=== PATIENT | male | born 2000 | race Caucasian/White ===

== ENCOUNTER 2021-07-03 08:03 | Observation (INO) | payer OTHER ==
[2021-07-03] MEDS ORDERED: Ondansetron PF 4 MG/2 ML Vial ONE (08:44)
[2021-07-03] MEDS ORDERED: Morphine 4 MG/ML VIAL ONE (08:44)
[2021-07-03 08:48] LABS: #Eosinphils 0.2 10x3/uL (0.0-0.5); #Monocytes 1.2 10x3/uL (0.0-1.1); %Basophils 0.3 % (0.0-2.0); %Eosinophils 1.4 % (0.0-6.0); %Lymphocytes 5.8 % (18.0-47.0); %Monocytes 9.7 % (0.0-10.0); %Neutrophils 82.4 % (40.0-75.0); Hemoglobin 14.8 g/dL (13.5-17.5); Mean Corpuscular HGB CONC 34.4 g/dL (32.0-36.0); Mean Corpuscular Hemoglobin 29.6 pg (27.0-33.0); Mean Platelet Volume 12.1 fl (7.4-10.4); Platelet Count 150 10x3/uL (150-450); White Blood Cell (WBC) Count 12.1 10x3/uL (3.5-10.5)
[2021-07-03 09:18] LABS: ALT (SGPT) 43 U/L (8-55); AST (SGOT) 37 U/L (5-34); Albumin 4.4 g/dL (3.5-5.0); Alkaline Phosphatase 72 U/L (40-110); Anion Gap 12 mmol/L (10-20); BUN (Urea Nitrogen) 12 mg/dL (8.9-20.6); Bilirubin, Total 0.8 mg/dL (0.2-1.2); Calc. Creatinine Clearance 0 mL/min (70-130); Calcium 9.4 mg/dL (7.8-10.44); Carbon Dioxide 24 mmol/L (22-29); Chloride 105 mmol/L (98-107); Globulin 2.6 g/dL (2.4-3.5); Glucose 118 mg/dL (70-105); Sodium 137 mmol/L (136-145)
[2021-07-03] MEDS ORDERED: HYDROmorphone 0.5 MG/0.5 ML SYRINGE ONE (10:05)
[2021-07-03] MEDS ORDERED: methylPREDNISolone Sod Succ/PF 125 MG/2 ML VIAL ONE (12:05)
[2021-07-03] MEDS ORDERED: metroNIDAZOLE 500 MG TAB ONE (12:29)
[2021-07-03 12:30] LABS: Bilirubin Neg (Negative); Blood, Urine Negative (Negative); Clarity Clear (Clear); Glucose, Urine (Dipstick) Normal (Negative); Ketone, Urine Negative (Negative); Leukocyte Negative (Negative); Nitrite Negative (Negative); Protein, Urine (Dipstick) 15 mg/dl (Neg-Trace); Urobilinogen Normal mg/dL (Less than 2); pH, Urine 6.5 (5.0-9.0)
[2021-07-03] MEDS ORDERED: Ciprofloxacin 500 MG TAB PO SCH (12:30)
[2021-07-03] MEDS ORDERED: Ondansetron ODT 4 MG TAB PO PRN (13:54)
[2021-07-03] MEDS ORDERED: Ondansetron PF 4 MG/2 ML Vial IVP PRN (13:54)
[2021-07-03] MEDS ORDERED: Acetaminophen 325 MG TAB PO PRN (13:54)
[2021-07-03] MEDS ORDERED: metroNIDAZOLE 500 MG in Premix Bag 1 BAG IVPB SCH (14:00)
[2021-07-03 15:33] VITALS: BMI 25.4
[2021-07-03] MEDS: Lactated Ringer's 1,000 ML IV SCH ×2 (17:56→22:02)
[2021-07-03] MEDS: HYDROcodone/Acetaminophen 5/325 mg Tablet PO PRN ×2 (18:04→22:03)
[2021-07-03] MEDS: methylPREDNISolone Sod Succ 40 MG VIAL IVP SCH (22:01)
[2021-07-03] MEDS: metroNIDAZOLE 500 MG TAB PO SCH (22:02)
[2021-07-04 05:11] LABS: #Monocytes 0.4 10x3/uL (0.0-1.1); #Neutrophils 11.4 10x3/uL (1.5-8.4); %Basophils 0.1 % (0.0-2.0); %Lymphocytes 6.2 % (18.0-47.0); %Monocytes 3.4 % (0.0-10.0); %Neutrophils 89.9 % (40.0-75.0); Hemoglobin 13.5 g/dL (13.5-17.5); Mean Corpuscular HGB CONC 34.1 g/dL (32.0-36.0); Mean Corpuscular Hemoglobin 29.5 pg (27.0-33.0); Mean Corpuscular Volume 86.5 fl (81.2-95.1); Mean Platelet Volume 12.4 fl (7.4-10.4); Platelet Count 157 10x3/uL (150-450); RBC Distribution Width 11.9 % (11.5-14.5); Red Blood Cell (RBC) Count 4.58 10x6/uL (4.32-5.72); White Blood Cell (WBC) Count 12.6 10x3/uL (3.5-10.5)
[2021-07-04 05:14] LABS: ALT (SGPT) 35 U/L (8-55); AST (SGOT) 29 U/L (5-34); Albumin 3.8 g/dL (3.5-5.0); Alkaline Phosphatase 63 U/L (40-110); Anion Gap 11 mmol/L (10-20); BUN (Urea Nitrogen) 11 mg/dL (8.9-20.6); Bilirubin, Total 0.5 mg/dL (0.2-1.2); Calc. Creatinine Clearance 160 mL/min (70-130); Calcium 9.3 mg/dL (7.8-10.44); Carbon Dioxide 27 mmol/L (22-29); Chloride 104 mmol/L (98-107); Globulin 2.6 g/dL (2.4-3.5); Glucose 153 mg/dL (70-105); Potassium 4.3 mmol/L (3.5-5.1); Protein, Total 6.4 g/dL (6.0-8.3); Sodium 138 mmol/L (136-145)
[2021-07-04] MEDS: metroNIDAZOLE 500 MG TAB PO SCH (05:27)
[2021-07-04] MEDS: methylPREDNISolone Sod Succ 40 MG VIAL IVP SCH (05:27)
[2021-07-04] MEDS: Lactated Ringer's 1,000 ML IV SCH (06:41)
[2021-07-04 11:05] LABS: SARS-CoV-2 PCR by NAA Not Detected (NotDetected)
[2021-07-04 12:39] VITALS: BP 132/67; TEMP 98.1
[2021-07-04] MEDS ORDERED: FLU VACC QS2021-22(6MOS UP)/PF 60 MCG/0.5 ML SYRINGE IM ONE (19:15)
== END 2021-07-04 15:15 | disposition home or self-care (01) ==
LOC: CSHERS 08:03 → CSHTELE 12:46 → UNDOADMOB 15:16
PROVIDERS: ADMIT Family Medicine; ATTEND Family Medicine
DX: A04.8 Other specified bacterial intestinal infections (principal); J45.909 Unspecified asthma, uncomplicated; Z20.822 Contact with and (suspected) exposure to COVID-19
CPT/HCPCS: 36415; 74177; 80053; 81003; 82274; 83605; 85025; 87045; 87046; 87324; 87328; 87329; 87427; 87449; 96374; 96376; G0378; J0744; J1170; J2270; J2405; J2920; J2930; J7120; U0003; U0005